=== PATIENT | female | born 1955 | race Caucasian/White ===

== ENCOUNTER 2025-03-20 10:30 | Outpatient (AMB) | payer MEDICARE, SELFPAY ==
--- NOTE | 2025-03-20 10:34 | MHC.OFFVIS ---
Vital Signs 03/20/25 10:39 Height 5 ft 7 in Weight 198 lb BMI 31.0 BP 137/79 Blood Pressure Location Rt brachial Position Sitting Pulse 77 Pulse Source Pulse Oximeter Pulse Oximetry (%) 96 Oxygen Delivery Method Room Air Intake Visit Reasons: Chronic fatigue syndrome/nerve block discussion Wire Bound Box Machine Helper Required: No Allergies No Known Allergies Allergy (Verified 03/20/25 10:43) Medication List - Last Reconciled 03/20/25 by Gina Gonzalez, VB NET DEVELOPER baclofen 20 mg PO BEDTIME ibuprofen 200 mg PO Q6H PRN lorazepam 1 mg PO BID PRN naltrexone mg PO QPM omeprazole 20 mg PO BID propranolol 20 mg PO TID pyridostigmine bromide (Mestinon) 120 mg PO QID trazodone 50 mg PO BEDTIME PRN HPI HPI Chronic fatigue syndrome/nerve block discussion: Details: History of Present Illness The patient is a 70-year-old female presenting with chronic pain management concerns. Her medical history is significant for chronic fatigue and pain syndromes. She reports neck pain, described as an aching, stabbing sensation with an intensity of 4-5 out of 10, and low back pain with a similar stabbing quality, fluctuating from 3/10 to 8/10. Her symptoms are exacerbated by daily activities but somewhat alleviated by medications and alternative therapies. She has bilateral greater trochanteric pain syndrome and burning sensations in both hands, alongside a history of temporomandibular joint dysfunction and joint subluxations. Despite completing interventions like physical therapy, chiropractic manipulation, massage therapy, and biofeedback, relief has been minimal. Her additional medical issues include PTSD, POTS, Raynaud's phenomenon, and orthostatic hypotension. She currently uses Tamsulosin regularly and Tylenol as needed. Pain Description - Neck pain: Longstanding, aching, stabbing sensation, intensity 4-5/10, worsens with activity - Low back pain: Stabbing sensation, morning intensity 3/10, increases to 8/10; aggravated by daily activities - Bilateral greater trochanteric pain with trochanteric bursitis - Burning sensations in both hands - Pain better in the morning and worsens as the day progresses - Previous relief from physical therapy, massage, acupuncture, biofeedback Physical Exam - Vitals- Blood pressure noted at 124/82 mmHg - Appears afebrile. - Alert and oriented. - Mood and affect appropriate. - Follows and participates in conversation appropriately. - Respiratory effort is unlabored. - Lying down due to POTS Pain Management - Affect: Pain significantly impacts daily activities and functionality despite being retired - Analgesia: Currently uses Tamsulosin daily and Tylenol as needed, with pain intensity ranging from 3/10 to 8/10 - Adverse Effects: No specific adverse effects from medication noted - Activities of Daily Living: Difficulty performing daily activities; requires reclining wheelchair for mobility - Aberrant Drug Related Behaviors: None reported Physical Exam Vital Signs: Last Vital Signs Pulse 77 03/20/25 10:39 BP 137/79 03/20/25 10:39 Pulse Ox 96 03/20/25 10:39 Oxygen Delivery Method Room Air 03/20/25 10:39 BMI result Body Mass Index 31.0 Assessment & Plan Assessment & Plan (1) Chronic fatigue: Code(s): R53.82 - Chronic fatigue, unspecified Category: Medical (2) PTSD (post-traumatic stress disorder): Code(s): F43.10 - Post-traumatic stress disorder, unspecified Category: Medical (3) POTS (postural orthostatic tachycardia syndrome): Code(s): G90.A - Postural orthostatic tachycardia syndrome [POTS] Category: Medical Plan Plan - Discussed lack of Medicare coverage for stellate ganglion block for chronic fatigue. Patient intends to sign an ABN for selfpay procedure - ABN signed; schedule procedure once a ribeiro is obtained from billing department - Maintain current pain management regimen including Tylenol as needed - Continue exploring non-invasive therapies such as biofeedback - Consider low dose naltrexone and muscle relaxants as adjunct therapies for pain relief Patient was informed and verbally consented to the use of an ambient scribe for clinic note documentation during this visit. Discussion Notes During the consultation, I explained to the patient that the stellate ganglion block, although potentially beneficial for conditions like Raynaud's phenomenon and PTSD, is not covered under Medicare for her specific conditions unless an ABN is signed and patient elects to pay for it themselves. I discussed alternative management strategies including continuation of current medications and non-invasive therapies she has found somewhat beneficial in the past. I mentioned possible enhancements in management through low dose naltrexone and muscle relaxants. Patient Instructions - Continue taking Tylenol as needed for pain - Continue with biofeedback sessions as they have shown some benefit - Monitor pain levels and report significant changes Coding Level of Care Code New Pt Level 4 (24834) Diagnoses Chronic fatigue R53.82 PTSD (post-traumatic stress disorder) F43.10 POTS (postural orthostatic tachycardia syndrome) G90.A
[2025-03-20 10:39] VITALS: BP 137/79; PULSE 77; O2SAT 96; BMI 31.0
== END 2025-03-20 11:23 | disposition home or self-care (01) ==
LOC: HO.PMC 10:30
PROVIDERS: PCP Registered Nurse; Referring Provider Registered Nurse; Visit Provider Internal Medicine
DX: R53.82 Chronic fatigue, unspecified (principal); F43.10 Post-traumatic stress disorder, unspecified; G90.A Postural orthostatic tachycardia syndrome [POTS]
CPT/HCPCS: 99204

== ENCOUNTER → 2025-03-20 10:30 | Outpatient (BNVA) | payer MEDICARE, SELFPAY | PROVIDERS: PCP Registered Nurse; Referring Provider Registered Nurse; Visit Provider Internal Medicine | DX: G90.A Postural orthostatic tachycardia syndrome [POTS] (principal); R53.82 Chronic fatigue, unspecified; F43.10 Post-traumatic stress disorder, unspecified | CPT/HCPCS: 99202 ==

== ENCOUNTER 2025-05-21 06:11 | Outpatient (REF) | payer MEDICARE, SELFPAY | END 2025-05-21 06:12 | disposition home or self-care (01) | LOC: CF 06:11 | PROVIDERS: Visit Provider Internal Medicine | DX: G90.A Postural orthostatic tachycardia syndrome [POTS] (principal); F43.10 Post-traumatic stress disorder, unspecified; R53.82 Chronic fatigue, unspecified | CPT/HCPCS: 64510; J1100; J2003; J2795 ==

== ENCOUNTER 2025-05-21 10:34 | Outpatient (AMB) | payer MEDICARE, SELFPAY ==
[2025-05-21 10:36] VITALS: BP 142/83; PULSE 73; RESP 16; O2SAT 95; BMI 31.0
--- NOTE | 2025-05-21 10:36 | MHC.OFFVIS ---
Vital Signs 05/21/25 10:36 05/21/25 11:26 Height 5 ft 7 in 5 ft 7 in Weight 198 lb 198 lb BMI 31.0 31.0 BP 142/83 H 141/82 H Blood Pressure Location Rt brachial Rt brachial Position Supine Supine Respiration 16 16 Pulse 73 74 Pulse Source Pulse Oximeter Pulse Oximeter Pulse Oximetry (%) 95 96 Oxygen Delivery Method Room Air Room Air Intake Visit Reasons: Stellate ganglion block Allergies No Known Allergies Allergy (Verified 03/20/25 10:43) HPI HPI Stellate ganglion block: Details: Patient presents for scheduled procedure. Denies any recent cough, cold, infection, fever or other significant changes in medical history since last office visit. Physical Exam Vital Signs: Last Vital Signs Pulse 74 05/21/25 11:26 Resp 16 05/21/25 11:26 BP 141/82 H 05/21/25 11:26 Pulse Ox 96 05/21/25 11:26 Oxygen Delivery Method Room Air 05/21/25 11:26 BMI result Body Mass Index 31.0 Office Procedures Nerve Block Details: Ultrasound Guided Stellate Ganglion Block, Right After obtaining written consent, pre-procedure pulse and blood pressure were stable and available in the patient's chart for review. The patient was placed in the supine position. The patient was prepped in a sterile manner. The neck anatomy was identified with the ultrasound machine. The C6 vertebra, carotid artery, trachea and longus colli muscle were identified. A 21G needle was inserted and advanced in real time under ultrasound guidance superficial to the longus colli muscle. There was no evidence of paresthesia, heme, or CSF. An injection was performed with 10 ml of 0.25% ropivicaine, lidocaine 1% and 4 mg of dexamethasone. This was administered over a two to three minute period with frequent aspirations, all of which were negative. 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 There was no evidence of motor blockade. The patient tolerated the procedure well. Following the procedure the patient's vital signs were stable. The patient was discharged home in good condition after being given discharge instructions. Time Out: Immediately prior to the procedure, the following was verbally confirmed that there is a signed consent form and that the correct patient, planned procedure, site and side are consistent with documentation and that necessary equipment and/or blood products are available prior to the start of the case. Complications: none EBL: <2 cc 82680 - Stellate Ganglion Procedure code (CPT) selection complete Assessment & Plan Assessment & Plan (1) Chronic fatigue: Code(s): R53.82 - Chronic fatigue, unspecified Category: Medical Plan Patient is status post right stellate ganglion block. Patient tolerated procedure well and was discharged home in stable condition with discharge instructions. All questions were answered. We will follow-up via telephone or in clinic to assess response to therapy. A follow-up appointment was made during today's visit. Orders: Orders US guide needle placement Today R53.82 - Chronic fatigue, unspecified Coding Level of Care Code Procedure Only Diagnoses Chronic fatigue R53.82 CPT Codes Nerve Block - Nerve Block 11: 62311 - Stellate Ganglion ([id number])
[2025-05-21 11:26] VITALS: BP 141/82; PULSE 74; RESP 16; O2SAT 96; BMI 31.0
== END 2025-05-21 11:32 | disposition home or self-care (01) ==
LOC: HO.PMCPRC 10:34
PROVIDERS: PCP Registered Nurse; Visit Provider Internal Medicine
DX: G89.4 Chronic pain syndrome (principal); R53.82 Chronic fatigue, unspecified
CPT/HCPCS: 64510; 76942

== ENCOUNTER 2025-05-28 06:35 | Outpatient (REF) | payer MEDICARE, SELFPAY | END 2025-05-28 06:36 | disposition home or self-care (01) | LOC: CF 06:35 | PROVIDERS: Visit Provider Internal Medicine | DX: R53.82 Chronic fatigue, unspecified (principal) | CPT/HCPCS: 64510; J1100; J2003; J2795 ==

== ENCOUNTER 2025-05-28 10:57 | Outpatient (AMB) | payer MEDICARE, SELFPAY ==
[2025-05-28 11:20] VITALS: BP 114/72; PULSE 68; RESP 16; O2SAT 98; BMI 31.0
--- NOTE | 2025-05-28 11:20 | MHC.OFFVIS ---
Vital Signs 05/28/25 11:20 05/28/25 11:21 Height 5 ft 7 in 5 ft 7 in Weight 198 lb 198 lb BMI 31.0 31.0 BP 114/72 132/76 Blood Pressure Location Rt brachial Rt brachial Position Supine Supine Respiration 16 16 Pulse 68 65 Pulse Source Pulse Oximeter Pulse Oximeter Pulse Oximetry (%) 98 97 Oxygen Delivery Method Room Air Room Air Intake Visit Reasons: Stellate ganglion block Allergies No Known Allergies Allergy (Verified 03/20/25 10:43) HPI HPI Stellate ganglion block: Details: Patient presents for scheduled procedure. Denies any recent cough, cold, infection, fever or other significant changes in medical history since last office visit. Physical Exam Vital Signs: Last Vital Signs Pulse 65 05/28/25 11:21 Resp 16 05/28/25 11:21 BP 132/76 05/28/25 11:21 Pulse Ox 97 05/28/25 11:21 Oxygen Delivery Method Room Air 05/28/25 11:21 BMI result Body Mass Index 31.0 Office Procedures Nerve Block Details: Ultrasound Guided Stellate Ganglion Block, Left After obtaining written consent, pre-procedure pulse and blood pressure were stable and available in the patient's chart for review. The patient was placed in the supine position. The patient was prepped in a sterile manner. The neck anatomy was identified with the ultrasound machine. The C6 vertebra, carotid artery, trachea and longus colli muscle were identified. A 21G needle was inserted and advanced in real time under ultrasound guidance superficial to the longus colli muscle. There was no evidence of paresthesia, heme, or CSF. An injection was performed with 10 ml of 0.25% ropivicaine, lidocaine 1% and 4 mg of dexamethasone. This was administered over a two to three minute period with frequent aspirations, all of which were negative. 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 There was no evidence of motor blockade. The patient tolerated the procedure well. Following the procedure the patient's vital signs were stable. The patient was discharged home in good condition after being given discharge instructions. Time Out: Immediately prior to the procedure, the following was verbally confirmed that there is a signed consent form and that the correct patient, planned procedure, site and side are consistent with documentation and that necessary equipment and/or blood products are available prior to the start of the case. Complications: none EBL: <2 cc 92769 - Stellate Ganglion Procedure code (CPT) selection complete Assessment & Plan Assessment & Plan (1) Chronic fatigue: Code(s): R53.82 - Chronic fatigue, unspecified Category: Medical Plan Patient is status post left stellate ganglion block. Patient tolerated procedure well and was discharged home in stable condition with discharge instructions. All questions were answered. We will follow-up via telephone or in clinic to assess response to therapy. A follow-up appointment was made during today's visit. Coding Level of Care Code Procedure Only Diagnoses Chronic fatigue R53.82 CPT Codes Nerve Block - Nerve Block 11: 18670 - Stellate Ganglion ([id number])
[2025-05-28 11:21] VITALS: BP 132/76; PULSE 65; RESP 16; O2SAT 97; BMI 31.0
== END 2025-05-28 12:08 | disposition home or self-care (01) ==
LOC: HO.PMCPRC 10:57
PROVIDERS: PCP Registered Nurse; Visit Provider Internal Medicine
DX: R53.82 Chronic fatigue, unspecified (principal)
CPT/HCPCS: 64510; 76942

== ENCOUNTER 2025-06-17 11:34 | Outpatient (AMB) | payer MEDICARE, SELFPAY ==
--- NOTE | 2025-06-17 11:38 | MHC.OFFVIS ---
Intake Visit Reasons: s/p stellate ganglion block Allergies No Known Allergies Allergy (Verified 03/20/25 10:43) HPI HPI s/p stellate ganglion block: Details: History of Present Illness The patient is a 70-year-old female presenting with dysphagia and irritable bowel syndrome. She reports episodes of dysphagia, characterized by a temporary inability to swallow, which have improved following a sympathetic block procedure. These episodes have been absent since the procedure, suggesting a potential autonomic component to the dysphagia. The patient also has a history of irritable bowel syndrome, with some improvement noted post-procedure, although these improvements were not sustained. Telehealth Telehealth Telehealth Platform: Telephone Location of provider rendering services: practice address Location of patient: address on file Patient Identification confirmed using: Name, : Yes Telehealth method: voice only Patient verbally consented to treatment: Yes Patient verbally consented to billing insurance company: Yes Patient informed of any privacy concerns related to visit: Yes Minutes spent on Phone/Video with Pt.: 6 Assessment & Plan Assessment & Plan (1) POTS (postural orthostatic tachycardia syndrome): Code(s): G90.A - Postural orthostatic tachycardia syndrome [POTS] Category: Medical (2) Chronic fatigue: Code(s): R53.82 - Chronic fatigue, unspecified Category: Medical Plan Plan - Schedule next round of SGBs, 48 hours apart, to manage dysphagia and irritable bowel syndrome symptoms which improved following last round. - The procedures will be planned for Sunday and Sunday, targeting the right and left sides respectively. Patient was informed and verbally consented to the use of an ambient scribe for clinic note documentation during this visit. Discussion Notes I discussed with the patient the potential benefits of repeating the sympathetic block procedure to manage her dysphagia and irritable bowel syndrome symptoms. We agreed to schedule the procedures 48 hours apart, with the first targeting the right side and the second the left side. Patient Instructions - Follow up with the clinic for scheduling the sympathetic block procedures. - Monitor for any changes in swallowing or bowel symptoms and report them to the clinic. Coding Level of Care Code Tele Est Pt Level 3 (38478) Diagnoses POTS (postural orthostatic tachycardia syndrome) G90.A Chronic fatigue R53.82
== END 2025-06-17 11:39 | disposition home or self-care (01) ==
LOC: HO.PMC 11:34
PROVIDERS: PCP Registered Nurse; Visit Provider Internal Medicine
DX: G90.A Postural orthostatic tachycardia syndrome [POTS] (principal); R53.82 Chronic fatigue, unspecified
CPT/HCPCS: 99213

== ENCOUNTER 2025-07-13 10:04 | Outpatient (AMB) | payer MEDICARE, SELFPAY ==
[2025-07-13 10:09] VITALS: BP 146/73; PULSE 71; RESP 16; O2SAT 97; BMI 31.0
--- NOTE | 2025-07-13 10:09 | MHC.OFFVIS ---
Vital Signs 07/13/25 10:09 Height 5 ft 7 in Weight 198 lb BMI 31.0 BP 146/73 H Blood Pressure Location Lt brachial Position Supine Respiration 16 Pulse 71 Pulse Source Pulse Oximeter Pulse Oximetry (%) 97 Oxygen Delivery Method Room Air Intake Visit Reasons: Right stellate ganglion block Family Service Caseworker Required: No Felt Coverer: Felt Coverer Present Accompanied by: Tono Mai Allergies No Known Allergies Allergy (Verified 07/15/25 09:49) Medication List - Last Reconciled 07/13/25 by Vanita Rios LPN baclofen 20 mg PO BEDTIME ibuprofen 200 mg PO Q6H PRN lorazepam 1 mg PO BID PRN naltrexone mg PO QPM omeprazole 20 mg PO BID propranolol 20 mg PO TID pyridostigmine bromide (Mestinon) 120 mg PO QID trazodone 50 mg PO BEDTIME PRN HPI HPI Right stellate ganglion block: Details: The patient is a 70-year-old female presenting with Postural Orthostatic Tachycardia Syndrome (POTS). The patient reports that her POTS is slowly improving since the last visit. Physical Exam Vital Signs: Last Vital Signs Pulse 71 07/13/25 10:09 Resp 16 07/13/25 10:09 BP 146/73 H 07/13/25 10:09 Pulse Ox 97 07/13/25 10:09 Oxygen Delivery Method Room Air 07/13/25 10:09 BMI result Body Mass Index 31.0 Office Procedures Nerve Block Details: Ultrasound Guided Stellate Ganglion Block, Right After obtaining written consent, pre-procedure pulse and blood pressure were stable and available in the patient's chart for review. The patient was placed in the supine position. The patient was prepped in a sterile manner. The neck anatomy was identified with the ultrasound machine. The C6 vertebra, carotid artery, trachea and longus colli muscle were identified. A 21G needle was inserted and advanced in real time under ultrasound guidance superficial to the longus colli muscle. There was no evidence of paresthesia, heme, or CSF. An injection was performed with 9 ml of 0.25% ropivicaine, lidocaine 1% and 5 mg of kenalog. This was administered over a two to three minute period with frequent aspirations, all of which were negative. Post procedure patient had a positive Kaila's syndrome and mild hoarseness. There was no evidence of motor blockade. The patient tolerated the procedure well. Following the procedure the patient's vital signs were stable. The patient was discharged home in good condition after being given discharge instructions. Time Out: Immediately prior to the procedure, the following was verbally confirmed that there is a signed consent form and that the correct patient, planned procedure, site and side are consistent with documentation and that necessary equipment and/or blood products are available prior to the start of the case. Complications: none EBL: <2 cc 83096 - Stellate Ganglion Procedure code (CPT) selection complete Assessment & Plan Assessment & Plan (1) POTS (postural orthostatic tachycardia syndrome): Code(s): G90.A - Postural orthostatic tachycardia syndrome [POTS] Category: Medical (2) Chronic fatigue: Code(s): R53.82 - Chronic fatigue, unspecified Category: Medical (3) PTSD (post-traumatic stress disorder): Code(s): F43.10 - Post-traumatic stress disorder, unspecified Category: Medical Plan Patient is status post right stellate ganglion block under ultrasound guidance. Patient tolerated procedure well and was discharged home in stable condition with discharge instructions. All questions were answered. We will follow-up via telephone or in clinic to assess response to therapy. A follow-up appointment was made during today's visit. Coding Level of Care Code Procedure Only Diagnoses POTS (postural orthostatic tachycardia syndrome) G90.A Chronic fatigue R53.82 PTSD (post-traumatic stress disorder) F43.10 CPT Codes Nerve Block - Nerve Block 11: 22996 - Stellate Ganglion ([id number])
== END 2025-07-13 11:16 | disposition home or self-care (01) ==
PROVIDERS: PCP Registered Nurse; Visit Provider Internal Medicine
DX: G90.A Postural orthostatic tachycardia syndrome [POTS] (principal)
CPT/HCPCS: 64510; 76942

== ENCOUNTER → 2025-07-13 10:04 | Outpatient (BNVA) | payer MEDICARE, SELFPAY | PROVIDERS: PCP Registered Nurse; Visit Provider Internal Medicine | DX: G90.A Postural orthostatic tachycardia syndrome [POTS] (principal); R53.82 Chronic fatigue, unspecified; F43.10 Post-traumatic stress disorder, unspecified | CPT/HCPCS: 64510 ==

== ENCOUNTER 2025-07-15 09:41 | Outpatient (AMB) | payer MEDICARE, SELFPAY ==
--- NOTE | 2025-07-15 09:48 | A.OFFVIS_ITS ---
Vital Signs 07/15/25 09:49 Height 5 ft 7 in Weight 198 lb BMI 31.0 BP 126/70 Blood Pressure Location Rt brachial Position Supine Respiration 16 Pulse 64 Pulse Source Pulse Oximeter Pulse Oximetry (%) 95 Oxygen Delivery Method Room Air Intake Visit Reasons: Left stellate ganglion block Gauge Maker Required: No Photoengraving Sketch Maker: Photoengraving Sketch Maker Present Accompanied by: Tono Mai Allergies No Known Allergies Allergy (Verified 07/15/25 09:49) Physical Exam Vital Signs: Last Vital Signs Pulse 64 07/15/25 09:49 Resp 16 07/15/25 09:49 BP 126/70 07/15/25 09:49 Pulse Ox 95 07/15/25 09:49 Oxygen Delivery Method Room Air 07/15/25 09:49 BMI result Body Mass Index 31.0 Office Procedures Nerve Block Details: Ultrasound Guided Stellate Ganglion Block, Left After obtaining written consent, pre-procedure pulse and blood pressure were stable and available in the patient's chart for review. The patient was placed in the supine position. The patient was prepped in a sterile manner. The neck anatomy was identified with the ultrasound machine. The C6 vertebra, carotid artery, trachea and longus colli muscle were identified. A 21G needle was inserted and advanced in real time under ultrasound guidance superficial to the longus colli muscle. There was no evidence of paresthesia, heme, or CSF. An injection was performed with 8 ml of 0.25% ropivicaine. This was administered over a two to three minute period with frequent aspirations, all of which were negative. 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 There was no evidence of motor blockade. The patient tolerated the procedure well. Following the procedure the patient's vital signs were stable. The patient was discharged home in good condition after being given discharge instructions. Time Out: Immediately prior to the procedure, the following was verbally confirmed that there is a signed consent form and that the correct patient, planned procedure, site and side are consistent with documentation and that necessary equipment and/or blood products are available prior to the start of the case. Complications: none EBL: <2 cc 60767 - Stellate Ganglion Procedure code (CPT) selection complete Assessment & Plan Assessment & Plan (1) Chronic fatigue: Code(s): R53.82 - Chronic fatigue, unspecified Category: Medical (2) POTS (postural orthostatic tachycardia syndrome): Code(s): G90.A - Postural orthostatic tachycardia syndrome [POTS] Category: Medical (3) PTSD (post-traumatic stress disorder): Code(s): F43.10 - Post-traumatic stress disorder, unspecified Category: Medical Plan Patient is status post left US guided SGB. Patient tolerated procedure well and was discharged home in stable condition with discharge instructions. All questions were answered. We will follow-up via telephone or in clinic to assess response to therapy. A follow-up appointment was made during today's visit. Coding Level of Care Code Procedure Only Diagnoses Chronic fatigue R53.82 POTS (postural orthostatic tachycardia syndrome) G90.A PTSD (post-traumatic stress disorder) F43.10 CPT Codes Nerve Block - Nerve Block 11: 58415 - Stellate Ganglion ([id number])
[2025-07-15 09:49] VITALS: BP 126/70; PULSE 64; RESP 16; O2SAT 95; BMI 31.0
== END 2025-07-15 10:48 | disposition home or self-care (01) ==
LOC: HO.PMC 09:45
PROVIDERS: PCP Registered Nurse; Visit Provider Internal Medicine
DX: G90.A Postural orthostatic tachycardia syndrome [POTS] (principal); R53.82 Chronic fatigue, unspecified; F43.10 Post-traumatic stress disorder, unspecified
CPT/HCPCS: 64510; 76942

== ENCOUNTER → 2025-07-15 09:41 | Outpatient (BNVA) | payer MEDICARE, SELFPAY | PROVIDERS: PCP Registered Nurse; Visit Provider Internal Medicine | DX: F43.10 Post-traumatic stress disorder, unspecified (principal); R53.82 Chronic fatigue, unspecified; G90.A Postural orthostatic tachycardia syndrome [POTS]; G89.4 Chronic pain syndrome | CPT/HCPCS: 64510 ==